=== PATIENT | male | born 1975 | race Caucasian/White ===

== ENCOUNTER 2024-01-01 11:00 | Outpatient (OUT) | payer OTHER, SELFPAY ==
[2024-01-01 11:35] LABS: Ammonia 22 umol/L (11-32)
[2024-01-01 11:40] LABS: Alanine Aminotransferase 37 U/L (16-63); Albumin Level 3.7 g/dL (3.4-5.0); Alkaline Phosphatase 145 U/L (46-116); Aspartate Amino Transferase 40 U/L (15-37); Bilirubin Direct 0.4 mg/dL (0.0-0.2); Bilirubin Total 1.1 mg/dL (0.2-1.0); Globulin 3.8 g/dL; Total Protein 7.5 g/dL (6.4-8.2)
== END 2024-01-01 11:01 | disposition home or self-care (01) ==
PROVIDERS: PCP Family Medicine; Visit Provider Nurse Practitioner Primary Care
DX: F10.29 Alcohol dependence with unspecified alcohol-induced disorder (principal)
CPT/HCPCS: 36415; 80076; 82140

== ENCOUNTER 2024-01-04 09:57 | Emergency (ER) | payer OTHER, SELFPAY ==
[2024-01-04 10:15] VITALS: BP 135/67; PULSE 83; TEMP 37.1; O2SAT 98; BMI 39.5
--- NOTE | 2024-01-04 10:25 | ED.ABDPAIN1 ---
HPI - Abdominal Pain General Chief Complaint: Abdominal Pain Stated Complaint: ABDOMINAL PAIN, SOB Time Seen by Provider: 01/04/24 10:15 Source: patient Mode of arrival: walk-in Limitations: no limitations History of Present Illness HPI narrative: 48-year-old male presents for the concern of reaccumulation of ascites. Has a history of liver issues and is in a rehab center right now. 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 He feels like he may have some fluid accumulation, he feels a bit distended and has a little bit of pain. No fever or trauma. No vomiting or diarrhea. Related Data Home Medications ?Medication ?Instructions ?Recorded ?Confirmed lactulose 10 gram/15 mL oral 10 g PO DAILY 01/04/24 01/04/24 solution (Enulose) meloxicam 7.5 mg tablet 7.5 mg PO BID 01/04/24 01/04/24 mirtazapine 7.5 mg tablet 7.5 mg PO ONCE 01/04/24 01/04/24 pantoprazole 40 mg tablet,delayed 40 mg PO Q12H 01/04/24 01/04/24 release propranolol 10 mg tablet 10 mg PO BID 01/04/24 01/04/24 spironolactone 50 mg tablet 50 mg PO BID 01/04/24 01/04/24 trazodone 50 mg tablet 50 mg PO BEDTIME 01/04/24 01/04/24 Allergies Allergy/AdvReac Type Severity Reaction Status Date / Time tramadol AdvReac Mild Seizure Verified 01/04/24 10:15 Review of Systems ROS Narrative A ten point review of systems is negative except as noted above. Exam Narrative Exam Narrative: Nurses note and vital signs reviewed and patient is not hypoxic. General: The patient appears well and in no apparent distress. Patient is resting comfortably on cart. Skin: Warm, dry, no pallor noted. There is no rash noted. Head: Normocephalic, atraumatic Eye: Normal conjunctiva, no drainage Ears, Nose, Mouth, and Throat: oral mucosa is moist. Nares patent. Cardiovascular: Regular Rate and Rhythm Respiratory: Patient is in no distress, no accessory muscle use, lungs are clear to auscultation, no wheezing, rales or rhonchi Back: non-tender GI: Obese and soft. Minimal tenderness present. Musculoskeletal: The patient has no evidence of calf tenderness, no pitting edema, symmetrical pulses noted bilaterally Neurological: A&O, normal speech Psychiatric: Cooperative Constitutional Vital Signs, click to edit/add: Last Vital Signs Temp 98.7 F 01/04/24 10:15 Pulse 81 01/04/24 12:08 Resp 14 01/04/24 12:08 BP 136/79 01/04/24 12:08 Pulse Ox 97 01/04/24 12:08 O2 Del Method Room Air 01/04/24 12:08 Course Vital Signs Vital signs: Vital Signs Temperature 98.7 F 01/04/24 10:15 Pulse Rate 83 01/04/24 10:15 Respiratory Rate 18 01/04/24 10:15 Blood Pressure 135/67 01/04/24 10:15 Pulse Oximetry 98 01/04/24 10:15 Oxygen Delivery Method Room Air 01/04/24 10:15 Temperature 98.7 F 01/04/24 10:15 Pulse Rate 81 01/04/24 12:08 Respiratory Rate 14 01/04/24 12:08 Blood Pressure 136/79 01/04/24 12:08 Pulse Oximetry 97 01/04/24 12:08 Oxygen Delivery Method Room Air 01/04/24 12:08 MDM - Abdominal Pain MDM Narrative Medical decision making narrative: CAT scan shows no evidence of ascites or evidence of pancreatitis. His lipase is only very minimally elevated and his amylase is just over thousand. He has no significant abdominal tenderness and I do not clinically suspect acute pancreatitis. He is able to be discharged and he will follow-up with his regular physician. He will return if symptoms worsen. Treatment diagnosis and follow-up were discussed with the patient. Differential Diagnosis Differential diagnosis: Likely abdominal pain, constipation, diverticulitis, gastroenteritis, pancreatitis and small bowel obstruction Lab Data Attestation: I reviewed the patient's lab results. Labs: Lab Results 01/04/24 Range/Units 10:51 WBC 7.1 (4.0-11.0) 10^3/uL RBC 5.03 (4.70-6.10) 10^6/uL Hgb 13.1 L (14.0-18.0) g/dL Hct 40.9 L (42.0-54.0) % MCV 81.3 (80.0-94.0) fL MCH 26.0 (25.9-34.0) pg MCHC 32.0 (29.9-35.2) g/dL RDW 17.8 H (11.0-15.0) % Plt Count 168 (150-450) 10^3/uL MPV 9.2 L (9.5-13.5) fL Neut % (Auto) 58.7 (43.0-75.0) % Lymph % (Auto) 29.0 (20.5-60.0) % [place] % (Auto) 7.3 (1.7-12.0) % Eos % (Auto) 3.7 (0.9-7.0) % Baso % (Auto) 1.0 (0.2-2.0) % Neut # (Auto) 4.2 (1.4-6.5) 10^3/uL Lymph # (Auto) 2.1 (1.2-3.8) 10^3/uL [place] # (Auto) 0.5 (0.3-0.8) 10^3/uL Eos # (Auto) 0.3 (0.0-0.7) 10^3/uL Baso # (Auto) 0.1 (0.0-0.1) 10^3/uL Abs Immat Gran (auto) 0.02 (0.00-0.03) 10^3/uL Imm/Tot Granulo (auto) 0.3 (0.0-0.5) % Sodium 140 (136-145) mmol/L Potassium 4.1 (3.5-5.1) mmol/L Chloride 107 (98-107) mmol/L Carbon Dioxide 22.7 (21.0-32.0) mmol/L Anion Gap 14.4 BUN 18.0 (7.0-18.0) mg/dL Creatinine 0.97 (0.70-1.30) mg/dL Est GFR ( Amer) >60 (>=60) Est GFR (Non-Af Amer) >60 (>=60) BUN/Creatinine Ratio 18.6 Glucose 111 H (74-106) mg/dL Calcium 9.2 (8.5-10.1) mg/dL Total Bilirubin 0.8 (0.2-1.0) mg/dL Direct Bilirubin 0.3 H (0.0-0.2) mg/dL AST 47 H (15-37) U/L ALT 40 (16-63) U/L Alkaline Phosphatase 140 H (46-116) U/L Total Protein 7.1 (6.4-8.2) g/dL Albumin 3.4 (3.4-5.0) g/dL Globulin 3.7 g/dL Albumin/Globulin Ratio 0.9 Amylase 1020 H* (25-115) U/L Lipase 97.0 H (16.0-77.0) U/L Imaging Data CT scan - abdomen: Radiologist's impression: ITS Impressions Abdomen/Pelvis CT 01/04/24 11:13 IMPRESSION: Cirrhosis with extensive varices No ascites Electronically authenticated by: DEIDRA BARBOSA Date: 01/04/2024 11:45 Discharge Plan Discharge Stand Alone Forms: Portal Instructions Chief Complaint: Abdominal Pain Clinical Impression: Abdominal pain Patient Disposition: Home, Self-Care Time of Disposition Decision: 12:29 Condition: Good Mode of Transportation: Private Vehicle Prescriptions / Home Meds: No Action meloxicam 7.5 mg tablet 7.5 mg PO BID trazodone 50 mg tablet 50 mg PO BEDTIME spironolactone 50 mg tablet 50 mg PO BID propranolol 10 mg tablet 10 mg PO BID pantoprazole 40 mg tablet,delayed release (DR/EC) 40 mg PO Q12H mirtazapine 7.5 mg tablet 7.5 mg PO ONCE lactulose [Enulose] 10 gram/15 mL solution 10 g PO DAILY Print Language: Maltese Instructions: Abdominal Pain (ED) Referrals: GEETHA ROLAND [Primary Care Provider] - 1 week
[2024-01-04 10:57] LABS: Basophils Absolute Auto 0.1 10^3/uL (0.0-0.1); Eosinophils Absolute Auto 0.3 10^3/uL (0.0-0.7); Eosinophils Percent Auto 3.7 % (0.9-7.0); Hematocrit 40.9 % (42.0-54.0); Hemoglobin 13.1 g/dL (14.0-18.0); Immature Granulocytes Abs Auto 0.02 10^3/uL (0.00-0.03); Immature Granulocytes Pct Auto 0.3 % (0.0-0.5); Lymphocytes Absolute Auto 2.1 10^3/uL (1.2-3.8); Mean Corpuscular Volume 81.3 fL (80.0-94.0); Mean Platelet Volume 9.2 fL (9.5-13.5); Monocytes Absolute Auto 0.5 10^3/uL (0.3-0.8); Monocytes Percent Auto 7.3 % (1.7-12.0); Neutrophils Absolute Auto 4.2 10^3/uL (1.4-6.5); Neutrophils Percent Auto 58.7 % (43.0-75.0); Platelet Count 168 10^3/uL (150-450); Red Blood Count 5.03 10^6/uL (4.70-6.10); Red Cell Distribution Width 17.8 % (11.0-15.0); White Blood Count 7.1 10^3/uL (4.0-11.0)
--- NOTE | 2024-01-04 11:13 | CT_ITS ---
[address] [address] Patient Name: SARAHI EASON MRN: [id number] date: 1975 Sex: M Assigned Patient Location: ER Current Patient Location: ER Accession/Order Number: [id number] Exam Date: 01/04/2024 11:00 Report Date: 01/04/2024 11:45 At the request of: MARYANN GOMEZ Procedure: CT abdomen pelvis w con EXAMINATION: CT abdomen pelvis w con HISTORY: Probable ascites, distention COMPARISON: No relevant comparison available. TECHNIQUE: CT images were created with IV contrast. Axial, Coronal, and Sagittal images. Dose reduction techniques were achieved by using automated exposure control and/or adjustment of mA and/or kV according to patient size and/or use of iterative reconstruction technique. FINDINGS: LUNG BASES: No visible pulmonary or pleural disease. LIVER: Nodular liver contour consistent with cirrhosis BILIARY: No visible dilatation or calcification. PANCREAS: No lesion, fluid collection, ductal dilatation, or atrophy. SPLEEN: No enlargement or focal lesion. ADRENALS: No mass or enlargement. KIDNEYS: Punctate nonobstructing right nephrolith. No hydronephrosis BOWEL/MESENTERY: No visible mass, obstruction, or bowel wall thickening. Normal appendix AORTA/VASCULAR: No aortic aneurysm or dissection. Mild atherosclerosis. Retroaortic left renal vein. Moderate diffuse varices likely related to portal hypertension from cirrhosis RETROPERITONEUM: No mass or adenopathy. LYMPH NODES: No adenopathy. URINARY BLADDER: No visible focal wall thickening, lesion, or calculus. PELVIC ORGANS: No visible mass. Pelvic organs appropriate for patient age. Central prostate calcifications ABDOMINAL WALL: No mass or hernia. BONES: No bony lesion or fracture. OTHER: Negative. CT/CT abdomen pelvis w con IMPRESSION: Cirrhosis with extensive varices No ascites Electronically authenticated by: DEIDRA BARBOSA Date: 01/04/2024 11:45
[2024-01-04 11:28] LABS: Alanine Aminotransferase 40 U/L (16-63); Albumin Globulin Ratio 0.9; Albumin Level 3.4 g/dL (3.4-5.0); Alkaline Phosphatase 140 U/L (46-116); Anion Gap 14.4; Aspartate Amino Transferase 47 U/L (15-37); BUN Creatinine Ratio 18.6; Bilirubin Direct 0.3 mg/dL (0.0-0.2); Bilirubin Total 0.8 mg/dL (0.2-1.0); Calcium 9.2 mg/dL (8.5-10.1); Carbon Dioxide 22.7 mmol/L (21.0-32.0); Chloride 107 mmol/L (98-107); Estimated GFR (African America >60 (>=60); Estimated GFR (Non-African Ame >60 (>=60); Globulin 3.7 g/dL; Glucose 111 mg/dL (74-106); Potassium 4.1 mmol/L (3.5-5.1); Sodium 140 mmol/L (136-145); Total Protein 7.1 g/dL (6.4-8.2)
[2024-01-04 11:37] LABS: Amylase 1020 U/L (25-115)
[2024-01-04 12:08] VITALS: BP 136/79; PULSE 81; O2SAT 97
[2024-01-04 12:31] VITALS: BP 136/79; PULSE 81; O2SAT 97
== END 2024-01-04 12:40 | disposition home or self-care (01) ==
PROVIDERS: Emergency Provider Emergency Medicine; PCP Family Medicine
DX: R10.9 Unspecified abdominal pain (principal); R06.02 Shortness of breath
CPT/HCPCS: 36415; 74177; 80048; 80076; 82150; 83690; 85025; 99284; Q9967